=== PATIENT | female | born 1970 | race Caucasian/White ===

== ENCOUNTER 2016-08-31 21:55 | Emergency (ER) | payer MEDICAID ==
[~2016-08-31] VITALS: Ht 154.9 cm; Wt 83.5 kg
[2016-08-31 21:55] VITALS: BP 114/69
--- NOTE | 2016-08-31 22:01 | NUR ---
NICHOLE FUENTES. TAKEN TO BED 1
--- NOTE | 2016-08-31 22:02 | NUR ---
Dr. Sena evaluating patient at bedside.
--- NOTE | 2016-08-31 22:18 | NUR ---
46Y/F PATIENT BIBA FROM HOME TO ED WITH C/O AGITATION AND COMBATIVE. FAMILY CALLED 911; JOSEF ESCALERA ON SITE. PER EMS, PATIENT WAS THROWING A TANTRUM UPON ARRIVAL. HX:PARANOID SCHIZO, DM, BIPOLAR, PTSD, INSOMNIA, ADHD, OCD. DENIES ANY N/V/D, PAIN OR DISCOMFORT AT THIS TIME. ER MD AWARE. PATIENT NO LONGER COMBATIVE. AAO AND COOPERATIVE. STATES SHE HASN'T TAKEN HER PYSCH MEDS X1MOS AND IS WILLING TO TAKE THEM; SKIN IS PINK/WARM/DRY; AAOX4 WITH EVEN AND STEADY GAIT; LUNGS CLEAR BL; HR EVEN AND REGULAR; PT DENIES ANY FEVER, CP, SOB, OR COUGH AT THIS TIME; PATIENT STATES PAIN OF 0/10 AT THIS TIME; VSS; PATIENT POSITIONED FOR COMFORT; HOB ELEVATED; BEDRAILS UP X2; BED DOWN. ER MD MADE AWARE OF PT STATUS.
--- NOTE | 2016-08-31 22:31 | NUR ---
PT MOVED TO OF
[2016-08-31 22:34] VITALS: BP 100/60
--- NOTE | 2016-08-31 22:35 | NUR ---
Patient discharged with v/s stable. Written and verbal after care instructions given and explained. Patient alert, oriented and verbalized understanding of instructions. Ambulatory with steady gait. All questions addressed prior to discharge. ID band removed. Patient advised to follow up with PMD. Rx of SEROQUEL 200 MG, RISPERDAL 1 MG, LITHIUM CARBONATE 300 MG given. Patient educated on indication of medication including possible reaction and side effects. Opportunity to ask questions provided and answered.
== END 2016-08-31 22:35 | disposition home or self-care (01) ==
LOC: MED 21:55
DX: F29 Unspecified psychosis not due to a substance or known physiological condition (principal); F31.9 Bipolar disorder, unspecified; E11.9 Type 2 diabetes mellitus without complications; F20.0 Paranoid schizophrenia; Z88.6 Allergy status to analgesic agent; Z88.8 Allergy status to other drugs, medicaments and biological substances
CPT/HCPCS: 99284

== ENCOUNTER 2024-01-17 10:13 | Emergency (ER) | payer BC, MEDICAID ==
[~2024-01-17] VITALS: Ht 165.1 cm; Wt 89.4 kg
[2024-01-17 10:21] VITALS: BP 122/66; PULSE 5; RESP 17; TEMP 97.2; O2SAT 98
[2024-01-17 10:30] VITALS: O2SAT 98
[2024-01-17] MEDS: METOCLOPRAMIDE 10 MG TAB PO ONE (11:18)
[2024-01-17 11:34] LABS: BASOPHILS % (AUTO) 0.6 % (0.0-2.0); EOSINOPHILS # (AUTO) 0.1 K/uL (0-0.4); EOSINOPHILS % (AUTO) 2.4 % (0.0-4.0); HEMOGLOBIN 8.7 g/dL (12.0-16.0); LYMPHOCYTES % (AUTO) 37.5 % (20.5-51.1); MEAN CORPUSCULAR HEMOGLOBIN 24 pg (27-31); MEAN CORPUSCULAR HGB CONC 32 g/dL (33-37); MEAN CORPUSCULAR VOLUME 75.8 fL (80-94); MONOCYTES # (AUTO) 0.5 K/uL (0.8-1.0); MONOCYTES % (AUTO) 10.3 % (1.7-9.3); NEUTROPHILS # (AUTO) 2.6 K/uL (1.8-7.7); NEUTROPHILS % (AUTO) 49.2 % (42.2-75.2); PLATELET COUNT (AUTO) 270 K/uL (140-450); RED BLOOD CELL COUNT(AUTO) 3.56 MIL/uL (4.20-5.40); WHITE BLOOD COUNT (AUTO) 5.3 K/uL (4.8-10.8)
[2024-01-17 11:40] LABS: APPEARANCE,URINE CLEAR (CLEAR); BILIRUBIN,URINE NEGATIVE (NEGATIVE); BLOOD, URINE NEGATIVE (NEGATIVE); COLOR,URINE YELLOW (YELLOW); LEUKOCYTE ESTERASE ,URINE NEGATIVE (NEGATIVE); NITRITE, URINE NEGATIVE (NEGATIVE); PROTEIN,URINE NEGATIVE (NEGATIVE); UGLUCOSE NEGATIVE (NEGATIVE); UROBILINOGEN,URINE 0.2 EU/dL (0.2 - 1)
[2024-01-17 11:48] LABS: ANION GAP 9.1 (8-16); CALCIUM 8.1 mg/dL (8.5-10.1); CARBON DIOXIDE 28.4 mmol/L (21-32); CREATININE 0.8 mg/dL (0.6-1.3); POTASSIUM 3.5 mmol/L (3.5-5.1)
[2024-01-17 12:03] LABS: ALANINE AMINOTRANSFERASE 17 U/L (12-78); ALBUMIN 2.6 g/dL (3.4-5.0); ALKALINE PHOSPHATASE 137 U/L (50-136); ASPARTATE AMINOTRANSFERASE 12 U/L (15-37); BILIRUBIN,DIRECT 0.1 mg/dL (0.0-0.3); LIPASE 37 U/L (16-77); TOTAL BILIRUBIN 0.2 mg/dL (0.0-1.0); TOTAL PROTEIN, SERUM 6.4 g/dL (6.4-8.2)
[2024-01-17] MEDS ORDERED: METO-485 PO (13:28)
[2024-01-17 13:50] VITALS: BP 125/62; PULSE 62; RESP 16; TEMP 98.1; O2SAT 98
== END 2024-01-17 13:50 | disposition home or self-care (01) ==
LOC: MED 10:13
DX: R11.10 Vomiting, unspecified (principal); R10.13 Epigastric pain; J45.909 Unspecified asthma, uncomplicated; E11.9 Type 2 diabetes mellitus without complications; F31.9 Bipolar disorder, unspecified; Z79.899 Other long term (current) drug therapy; Z88.6 Allergy status to analgesic agent; Z88.8 Allergy status to other drugs, medicaments and biological substances
CPT/HCPCS: 36415; 80048; 80076; 81003; 83690; 84484; 85025; 99283; J8597